=== PATIENT | female | born 1975 | race Caucasian/White ===

== ENCOUNTER 2016-12-13 12:54 | Outpatient (CLI) | payer MEDICAID ==
[~2016-12-13] VITALS: Ht 142.2 cm; Wt 62.2 kg
[~2016-12-13 12:54] MED LIST: GLYB2.5T2 PO; PREN1TAB49 PO
[2016-12-13 13:14] VITALS: Ht 142.2 cm; Wt 62.2 kg
[2016-12-13 13:15] VITALS: BP 104/54; PULSE 76; RESP 18
--- NOTE | 2016-12-13 14:06 | TRIAGE ---
OB Triage Datetime Report Generated by CPN: 12/13/2016 14:06 Datetime: 12/13/2016 13:45 Vaginal Exam Dilatation (cms): 0.0 Exam By: FOROOHAR Vaginal Bleeding: None Cervix, Consistency: Moderate Cervix, Position: Posterior Datetime: 12/13/2016 13:30 Stage of : OB Triage Maternal Assessment Level of Consciousness: Fully Conscious Labor Evaluation Frequency: 3-10 Monitor Mode: External Duration (sec)2399: 60-180 Quality: Mild Resting Tone [place]: Relaxed Heart Rate FHR Baseline Rate: 135 Monitor Mode: External US Variability: Moderate 6-25 bpm Accelerations: 15X15 Decelerations: None Pain Assessment Pain Scale: 0 Pain Presence: None/Denies Pain Goal: 3 Membrane Status: Intact Vaginal Bleeding: None Datetime: 12/13/2016 13:06 Assessment Type: Triage Maternal Assessment Level of Consciousness: Fully Conscious DTR's/Clonus: DTRs 2+; No Clonus Headache: Denies Blurred Vision: No Respiratory Effort: Unlabored; Regular Rhythm; Equal Expansion Breath Sounds, Left: Clear and Equal Breath Sounds, Right: Clear and Equal Nausea/Vomiting: Denies RUQ Epigastric Pain: Denies Lower Extremities Edema: None Degree: None Upper Extremities Edema: None Degree: None Facial Edema: None Fall Risk Assessment History of Falling: (0) No Secondary Diagnosis: (0) No Ambulatory Aid: (0) Bedrest/Nurse Assist IV Therapy: (0) No Gait: (0) Normal/Bedrest/Immobile Mental Status: (0) Oriented to Own Ability Fall Score: 0 Fall Risk Score Definition: No Risk: No action required Datetime: 12/13/2016 13:05 Time of Arrival: 12/13/2016 12:49 EGA: 34.6 Arrived By: Ambulatory Arrived From: Home Chief Complaint: C/O COUGH Movement: Present Contractions: Denies/Absent Rupture of Membranes: Denies Vaginal Bleeding: None Vaginal Discharge: Denies Recent Sexual Intercouse: Yes Abdominal Trauma: Not Applicable Patient Complaints: None Time Provider Notified: 12/13/2016 13:30 Provider Notified: JOHANNE Initial Plan: NST/
--- NOTE | 2016-12-13 16:21 | PN ---
Date/Time of Note Date/Time of Note DATE: 12/13/16 TIME: 16:10 OB Subjective Subjective Subjective This is a 40 years old 3 para 2 ,with EDC of 01/18/2017, now about 34 weeks and 6 weeks . she came in triage area complaining of cold cough for about 2 days as well as contractions. On examination her ear nose throat appear to be normal. Chest was clear to auscultation and percussion however there were some wet rales at the right lower lobe of the lungs. Abdomen was soft she was having occasional contractions. heart tones to be normal. Her NST was reactive Her blood pressure was 104/58, temperature 98.2, Due to the fact that she did not have much contractions she was advised to continue her care in the emergency room Vital Signs Date Time Temp Pulse Resp B/P Pulse Ox O2 Delivery O2 Flow Rate FiO2 12/13/16 13:15 98.2 76 18 104/54 96 EMMA WHITING MD Dec 13, 2016 16:20
== END 2016-12-13 13:56 | disposition home or self-care (01) ==
LOC: OBT 12:54 → L-D 12:55 → OBT 13:56
PROVIDERS: ATTEND Obstetrics & Gynecology
DX: O60.03 Preterm labor without delivery, third trimester (principal); Z3A.35 35 weeks gestation of pregnancy
CPT/HCPCS: G0463

== ENCOUNTER 2017-01-16 15:16 | Outpatient (CLI) | payer MEDICAID ==
[~2017-01-16] VITALS: Ht 149.9 cm; Wt 63.2 kg
[~2017-01-16 15:16] MED LIST changes: -GLYB2.5T2 PO
[2017-01-16 15:43] VITALS: Ht 149.9 cm; Wt 63.2 kg
[2017-01-16 15:44] VITALS: BP 134/60; PULSE 83; RESP 18
--- NOTE | 2017-01-16 16:33 | RADRPT ---
PROCEDURE: US OB biophysical profile. CLINICAL INDICATION: decreased movements, labor pain TECHNIQUE: Multiple sonographic images of the pelvis were obtained. The images were reviewed on a PACS workstation. COMPARISON: No prior studies are available for comparison. FINDINGS: There is a single viable intrauterine gestation. Cardiac activity is present with 135 beats per min kayla. There is a vertex presentation. The placenta is fundal. There is no evidence of placental abruption. There is a normal amount of amniotic fluid with an PRASHANT = 16.3 cm. Biophysical profile: movement 2/2 tone 2/2. breathing 2/2 PRASHANT 2/2 Total 07/02 RPTAT: AA . IMPRESSION: Normal biophysical profile. . .Burke Jay MD, Date Time Electronically viewed and signed by .Burke Jay MD, MD on 01/16/2017 16:33 .S/
--- NOTE | 2017-01-16 16:33 | RADRPT ---
PROCEDURE: Obstetrical ultrasound. CLINICAL INDICATION: , evaluation. Pelvic pain. TECHNIQUE: Transabdominal sonographic images of the pelvis are obtained. COMPARISON: OB ultrasound 09/03/2016 FINDINGS: Single intrauterine gestation. There is a cephalic presentation. Measurements were made in order to determine age. The results are as follows: BPD = 9.47 cm HC = 33.73 cm AC = 35.44 cm FL = 7.65 cm Heart rate = 126 beats per minute The placenta is fundal - maternal right. There is no evidence for an abruption or placenta previa. Ovaries are not visualized. IMPRESSION: Single intrauterine gestation of approximately 39 weeks 0 days by ultrasound criteria. Estimated weight = 3691 g; 60 percentile for estimated ultrasound age. RPTAT: AADD .Fantasma Huerta MD, Date Time Electronically viewed and signed by .Fantasma Huerta MD, on 01/16/2017 16:33 .B/
[2017-01-16] MEDS ORDERED: TERBUTALINE 0 ML ONE (17:16)
--- NOTE | 2017-03-31 19:49 | DS ---
Date/Time of Note Date/Time of Note DATE: 03/31/17 TIME: 19:44 Discharge Summary Admission/Discharge Info Admit Date/Time 01/16/17 Discharge Date/Time 01/16/17 Final Diagnosis term r/o labor Patient Condition: Good Procedures labor evaluation Hx of Present Illness term Hospital Course good Home Meds Reported Medications Vits W-Ca,Fe,Fa(<1MG) () 1 Tab Tablet, 1 TAB PO DAILY 07/29/12 Follow-up Plan return to hospital STEPHANIE Cid MD March 31, 2017 19:49
== END 2017-01-16 17:40 | disposition home or self-care (01) ==
LOC: L-D 15:16 → OBT 15:16
PROVIDERS: ATTEND Obstetrics & Gynecology
DX: Z34.83 Encounter for supervision of other normal pregnancy, third trimester (principal); O09.523 Supervision of elderly multigravida, third trimester; Z3A.39 39 weeks gestation of pregnancy
CPT/HCPCS: 76815; 76818; Z7500; G0463; J3105

== ENCOUNTER 2017-01-18 23:29 | Inpatient (IN) | payer MEDICAID ==
[~2017-01-18] VITALS: Ht 144.8 cm; Wt 75.9 kg
[2017-01-18 23:44] VITALS: BP 128/63; PULSE 69; RESP 18
[2017-01-19] MEDS ORDERED: LACTATED RINGER'S 1,000 ML IV SCH (01:23)
--- NOTE | 2017-01-19 01:23 | TRIAGE ---
OB Triage Datetime Report Generated by CPN: 01/19/2017 01:23 Datetime: 01/19/2017 00:11 Labor Evaluation Frequency: 7-8 Monitor Mode: External Duration (sec)2399: 60-90 Quality: Moderate Pattern: Normal: <= 5 Contractions in 10 Minutes Resting Tone [place]: Relaxed Heart Rate FHR Baseline Rate: 135 Monitor Mode: External US Variability: Moderate 6-25 bpm Accelerations: 15X15 Decelerations: None Category: Category I Vaginal Exam Dilatation (cms): 3.0 Effacement (%): 80 Station: -2 Exam By: oYny Rob Membrane Status: Intact Amniotic Fluid Amount: None Vaginal Bleeding: Normal Show Nitrazine: Negative Cervix, Consistency: Soft Cervix, Position: Midposition Presentation 'A': Cephalic Datetime: 01/18/2017 23:42 Time of Arrival: 01/18/2017 23:24 EGA: 40.0 Arrived By: Wheelchair Arrived From: Home Chief Complaint: w/ c/o uc, bleeding, and yellow fluid. Denies hx problems this Movement: Present Contractions: Regular Time Contractions Began: 01/18/2017 18:00 Contractions: q10 Rupture of Membranes: Unsure Vaginal Bleeding: Small Vaginal Discharge: Present Recent Sexual Intercouse: Denies Abdominal Trauma: Not Applicable Patient Complaints: Contractions Time Provider Notified: 01/19/2017 01:20 Provider Notified: Dr Mcfadden Initial Plan: EFM,SVE Datetime: 01/18/2017 23:39 Stage of : OB Triage Maternal Assessment Level of Consciousness: Fully Conscious Headache: Denies Blurred Vision: No Nausea/Vomiting: Denies RUQ Epigastric Pain: Denies Facial Edema: None Labor Evaluation Frequency: placed Monitor Mode: External Resting Tone [place]: Relaxed Monitor Mode: External US Comments: FHT 140 Pain Assessment Pain Scale: 5 Pain Presence: Intermittent Pain Type: Contraction Pain Location: Abdomen Datetime: 01/16/2017 16:57 Labor Evaluation Frequency: 5-6 Monitor Mode: External Duration (sec)2399: 50-60 Quality: Mild Pattern: Normal: <= 5 Contractions in 10 Minutes Resting Tone [place]: Relaxed Heart Rate FHR Baseline Rate: 125 Monitor Mode: External US FHR Baseline Changes: No Baseline Change Variability: Moderate 6-25 bpm Accelerations: 15X15 Decelerations: None Category: Category I Datetime: 01/16/2017 16:00 Labor Evaluation Frequency: 5-6 Monitor Mode: External Duration (sec)2399: 50-60 Quality: Mild Pattern: Normal: <= 5 Contractions in 10 Minutes Resting Tone [place]: Relaxed Heart Rate FHR Baseline Rate: 135 Monitor Mode: External US FHR Baseline Changes: No Baseline Change Variability: Moderate 6-25 bpm Accelerations: 15X15 Decelerations: None Category: Category I Datetime: 01/16/2017 15:34 Stage of : OB Triage Maternal Assessment Level of Consciousness: Fully Conscious DTR's/Clonus: DTRs 2+; No Clonus Headache: Denies Blurred Vision: No Respiratory Effort: Unlabored Breath Sounds, Left: Clear and Equal Breath Sounds, Right: Clear and Equal Nausea/Vomiting: Denies RUQ Epigastric Pain: Denies Facial Edema: None Labor Evaluation Frequency: 2-4 Monitor Mode: External Duration (sec)2399: 50-60 Quality: Mild Pattern: Normal: <= 5 Contractions in 10 Minutes Resting Tone [place]: Relaxed Heart Rate FHR Baseline Rate: 125 Monitor Mode: External US FHR Baseline Changes: No Baseline Change Variability: Moderate 6-25 bpm Accelerations: 15X15 Decelerations: None Category: Category I Vaginal Exam Dilatation (cms): 1.0 Effacement (%): 50 Station: -2 Exam By: ROHITH PAZ Membrane Status: Intact Vaginal Bleeding: None Cervix, Consistency: Firm Cervix, Position: Midposition Presentation 'A': Unable to Assess Lie 'A': Unable to Assess Datetime: 01/16/2017 15:33 Time of Arrival: 01/16/2017 15:21 EGA: 39.5 Arrived By: Ambulatory Arrived From: Home Chief Complaint: R/O LABOR Movement: Present Contractions: Irregular Time Contractions Began: 01/16/2017 11:00 Contractions: 4-11 Rupture of Membranes: Denies Vaginal Bleeding: None Vaginal Discharge: Denies Recent Sexual Intercouse: Denies Abdominal Trauma: Not Applicable Patient Complaints: Contractions Additional Patient Complaints: HX GDM Time Provider Notified: 01/16/2017 15:34 Provider Notified: ASHLEY Datetime: 12/13/2016 13:06 Fall Risk Assessment Fall Score: 0 Fall Risk Score Definition: No Risk: No action required Datetime: 12/13/2016 13:05 EGA: 34.6
[2017-01-19] MEDS ORDERED: METHYLERGONOVINE 0.2 MG INJ IM PRN (01:30)
[2017-01-19] MEDS ORDERED: IBUPROFEN 600 MG TAB PO PRN (01:30)
[2017-01-19] MEDS ORDERED: CARBOPROST 250 MCG INJ IM PRN (01:30)
[2017-01-19] MEDS ORDERED: LIDOCAINE 1% (MPF) 30 ML INJ INJ PRN (01:30)
[2017-01-19] MEDS ORDERED: OXYTOCIN 30 UNITS/LR 500 ML IV PRN (01:30)
[2017-01-19] MEDS ORDERED: BUTORPHANOL 2 MG INJ IV PRN (01:30)
[2017-01-19] MEDS ORDERED: OXYTOCIN 30 UNITS/LR 500 ML IV SCH (01:30)
[2017-01-19] MEDS ORDERED: MISOPROSTOL 200 MCG TAB PR PRN (01:30)
--- NOTE | 2017-01-19 01:32 | HP ---
Date/Time of Note Date/Time of Note DATE: 01/19/17 TIME: 01:30 OB - History Hx of Present Chief Complaint: Active labor Care: Good Care Past Family/Social History * Past Medical, Surgical, Family and Obstetric Histories reviewed from chart. OB Admission Exam Vital Signs Vital Signs Vital Signs Date Time Temp Pulse Resp B/P Pulse Ox O2 Delivery O2 Flow Rate FiO2 01/18/17 23:44 98.2 69 18 128/63 Room Air Physical Exam Abdomen: WNL Extremities: Normal Reflexes: Normal Cervical Dilatation: 3cm Accelerations: Accelerations Present Decelerations: No Decelerations Varibility: Moderate OB Assessment/Plan Reason for admission: active labor Plan: Expectant Management ZUHAIR TIPTON Jan 19, 2017 01:32
[2017-01-19] MEDS ORDERED: LACTATED RINGER'S 1,000 ML IV PRN (02:30)
[2017-01-19 05:42] LABS: ADD SCAN DIFF NO
[2017-01-19 05:46] LABS: BASOPHILS % 0.2 % (0.0-2.0); EOSINOPHILS # 0.1 10^3/ul (0.0-0.5); HEMATOCRIT 40.3 % (37.0-47.0); HEMOGLOBIN 13.7 g/dl (12.0-16.0); LYMPHOCYTES # 2.1 10^3/ul (0.8-2.9); LYMPHOCYTES % 18.8 % (15.0-51.0); MEAN CORPUSCULAR HEMOGLOBIN 29.1 pg (29.0-33.0); MEAN CORPUSCULAR VOLUME 85.6 fl (82.0-101.0); MEAN PLATELET VOLUME 12.5 fl (7.4-10.4); MONOCYTE # 0.6 10^3/ul (0.3-0.9); MONOCYTES % 5.1 % (0.0-11.0); NEUTROPHIL # 8.4 10^3/ul (1.6-7.5); NEUTROPHILS % 74.6 % (39.0-77.0); PLATELET COUNT 262 10^3/UL (140-415); RED BLOOD COUNT 4.71 10^6/ul (4.20-5.40); RED CELL DISTRIBUTION WIDTH 14.5 % (11.5-14.5); WHITE BLOOD COUNT 11.2 10^3/ul (4.8-10.8)
[2017-01-19 06:04] LABS: INR 0.81; PROTIME 11.2 Sec (12.2-14.2); PT RATIO 0.9
[2017-01-19 06:05] LABS: PARTIAL THROMBOPLASTIN TIME 30.7 Sec (25.0-35.0)
[2017-01-19] MEDS: OXYTOCIN 30 UNITS/LR 500 ML IV SCH ×3 (08:40→13:55)
--- NOTE | 2017-01-19 09:04 | LDN ---
Date/Time of Note Date/Time of Note DATE: 01/19/17 TIME: 09:01 Delivery Summary Normal spontaneous vaginal delivery of a baby boy from BETY position shoulders delivered with no difficulty, placenta spontaneous expulsion inspected complete patient sustained various small perineal laceration repaired with 3-0 chromic catgut estimated blood loss 200 cc Problems: Infant Delivery Information Sex Infant Sex: male Apgars 1 Minute: 8 5 Minute: 9 Suctioning Nose & mouth suctioned at jere: Yes Delee suction performed: No Umbilical Cord Umbilical cord with: 3 Vessels Cord presentations: nuchal cord Cord Blood was obtained: Yes STEPHANIE RAMIREZ MD Jan 19, 2017 09:04
[2017-01-19 13:00] VITALS: BP 122/51; PULSE 90; RESP 18
[2017-01-19] MEDS ORDERED: OXYCODONE/ASPIRIN (4.88/325) TAB PO PRN ×2 (13:00)
[2017-01-19] MEDS ORDERED: ONDANSETRON 4 MG INJ IV PRN (13:00)
[2017-01-19] MEDS ORDERED: WITCH HAZEL/GLYCERIN PAD PR PRN (13:00)
[2017-01-19] MEDS ORDERED: ACETAMINOPHEN/CODEINE #3 TAB PO PRN ×2 (13:00)
[2017-01-19] MEDS ORDERED: DIBUCAINE 1% 30 GM OINT PR PRN (13:00)
[2017-01-19] MEDS ORDERED: LANOLIN 7 GM TUBE TOP PRN (13:00)
[2017-01-19] MEDS ORDERED: ACETAMINOPHEN 325 MG TAB PO PRN (13:00)
[2017-01-19] MEDS ORDERED: BENZOCAINE 20% 56 ML SPRAY TOP PRN (13:00)
[2017-01-19] MEDS: IBUPROFEN 600 MG TAB PO SCH ×3 (13:00→23:24)
[2017-01-19 16:15] VITALS: BP 110/60; PULSE 78; RESP 16
[2017-01-19 20:10] VITALS: BP 112/58; PULSE 76; RESP 18
[2017-01-19] MEDS: SENNA/DOCUSATE NA (8.6MG/50MG) TAB PO SCH (21:05)
[2017-01-20 00:30] VITALS: BP 111/56; PULSE 70; RESP 18
[2017-01-20 04:00] VITALS: BP 111/56; PULSE 70; RESP 18
[2017-01-20] MEDS: IBUPROFEN 600 MG TAB PO SCH ×4 (05:58→23:59)
[2017-01-20 07:23] LABS: ADD SCAN DIFF NO
[2017-01-20 07:29] LABS: BASOPHILS % 0.3 % (0.0-2.0); EOSINOPHILS # 0.1 10^3/ul (0.0-0.5); HEMATOCRIT 37.4 % (37.0-47.0); HEMOGLOBIN 12.4 g/dl (12.0-16.0); LYMPHOCYTES # 2.7 10^3/ul (0.8-2.9); LYMPHOCYTES % 23.5 % (15.0-51.0); MEAN CORPUSCULAR HEMOGLOBIN 29.1 pg (29.0-33.0); MEAN CORPUSCULAR HGB CONC 33.2 g/dl (32.0-37.0); MEAN CORPUSCULAR VOLUME 87.8 fl (82.0-101.0); MEAN PLATELET VOLUME 12.1 fl (7.4-10.4); MONOCYTE # 0.6 10^3/ul (0.3-0.9); MONOCYTES % 5.5 % (0.0-11.0); NEUTROPHILS % 69.2 % (39.0-77.0); PLATELET COUNT 229 10^3/UL (140-415); RED BLOOD COUNT 4.26 10^6/ul (4.20-5.40); RED CELL DISTRIBUTION WIDTH 14.7 % (11.5-14.5); WHITE BLOOD COUNT 11.6 10^3/ul (4.8-10.8)
[2017-01-20] MEDS: OXYTOCIN 30 UNITS/LR 500 ML IV SCH (07:36)
[2017-01-20 08:15] VITALS: BP 103/55; PULSE 68; RESP 20
[2017-01-20] MEDS: SENNA/DOCUSATE NA (8.6MG/50MG) TAB PO SCH ×2 (10:06→21:48)
--- NOTE | 2017-01-20 11:44 | PN ---
Date/Time of Note Date/Time of Note DATE: 01/20/17 TIME: 11:43 OB Subjective Subjective Subjective day 1 Vital signs stable afebrile abdomen is uterus firm lochia normal extremity normal STEPHANIE RAMIREZ MD Jan 20, 2017 11:44
[2017-01-20 16:03] VITALS: BP 114/65; PULSE 81; RESP 19
[2017-01-20 19:45] VITALS: BP 113/62; PULSE 78; RESP 18
[2017-01-21 03:54] VITALS: BP 113/56; PULSE 65; RESP 18
[2017-01-21] MEDS: IBUPROFEN 600 MG TAB PO SCH ×2 (05:43→12:03)
[2017-01-21 08:40] VITALS: BP 96/55; PULSE 74; RESP 18
[2017-01-21] MEDS ORDERED: MEASLES,MUMPS,RUBELLA VACCINE INJ SC* ONE (09:00)
[2017-01-21] MEDS: SENNA/DOCUSATE NA (8.6MG/50MG) TAB PO SCH (09:42)
--- NOTE | 2017-01-21 12:51 | PD.PPDC ---
PHOTOGRAPHER'S MODEL Discharge Instruction Condition Patient Condition: Good Diet Diet: Resume Regular Diet Follow-up Follow-up with Physician: 2, Week/Weeks Return to clinic for [employer] Instructions: Fever greater than 101 Worsening abdominal pain Excessive Vaginal Bleeding More than 2 pads per hour Unable to tolerate diet STEPHANIE RAMIREZ MD Jan 21, 2017 12:51
--- NOTE | 2017-01-21 12:54 | DS ---
Date/Time of Note Date/Time of Note DATE: 01/21/17 TIME: 12:52 Obstetrical Discharge Record Final Diagnosis Final Diagnosis: Term delivered Vaginal Delivery Obstetrical Delivery: Spontaneous Condition on Discharge Physical Assessment Last Vitals: Day 2 post normal vaginal delivery afebrile vital sign stable abdomen soft uterus firm lochia normal extremity normal, patient is discharged home with follow-up instructions to be seen at the clinic 2 weeks Voiding: Yes Bowel Movement: Yes Breast: Soft, non-tender, Filling Fundus: Firm Calf Tenderness: No Patient Condition: Good STEPHANIE RAMIREZ MD Jan 21, 2017 12:54
== END 2017-01-21 18:29 | disposition home or self-care (01) | DRG 775 ==
LOC: OBT 23:29 → L-D 23:30 → OBT 01-19 01:26 → L-D 01-19 01:27 → PP1 01-19 13:02
PROVIDERS: ADMIT Obstetrics & Gynecology; ATTEND Obstetrics & Gynecology
PROC: 10E0XZZ Delivery of Products of Conception, External Approach (ICD-10-PCS; principal; 2017-01-19)
PROC: 0HQ9XZZ Repair Perineum Skin, External Approach (ICD-10-PCS; 2017-01-19)
DX: O70.0 First degree perineal laceration during delivery (principal); O09.523 Supervision of elderly multigravida, third trimester; Z3A.38 38 weeks gestation of pregnancy; Z37.0 Single live birth
CPT/HCPCS: 36415; 85025; 85610; 85730; 86592; 86900; 86901; 96360; 96372; 99464; G0463; J2590; J7120